=== PATIENT | female | born 1985 | race Caucasian/White ===

== ENCOUNTER 2022-10-24 03:16 | Emergency (ER) | payer OTHER ==
[2022-10-24 03:21] VITALS: BP 139/89; PULSE 100; RESP 18; TEMP 97.6; BMI 34.1
[2022-10-24] MEDS ORDERED: ACETAMINOPHEN 325 MG TABLET (FP) PO ONE (03:47)
[2022-10-24] MEDS ORDERED: ACETAMINOPHEN 325 MG TABLET (FP) ONE (03:55)
== END 2022-10-24 04:14 | disposition home or self-care (01) ==
LOC: JER 03:16
DX: O99.413 Diseases of the circulatory system complicating pregnancy, third trimester (principal); R07.9 Chest pain, unspecified; O99.613 Diseases of the digestive system complicating pregnancy, third trimester; R10.9 Unspecified abdominal pain; Z3A.30 30 weeks gestation of pregnancy
CPT/HCPCS: 93005; 93010; 99283-25

== ENCOUNTER 2022-12-27 03:04 | Inpatient (IN) | payer OTHER ==
[2022-12-27] MEDS ORDERED: DINOPROSTONE 10 MG VAGINAL SUPPOSITORY VG STA (05:30)
[2022-12-27] MEDS: ELECTROLYTE-148 SOLN 1,000 ML IV SCH ×3 (05:45→15:22)
[2022-12-27 06:19] VITALS: BMI 34.1
[2022-12-27 06:21] LABS: BASO % 0.8 % (0-2.0); EOS % 1.2 % (0-4.5); HEMOGLOBIN 13.2 GM/dL (10.7-15.3); LYMPH % 24.3 % (8-40); MCH 28.5 pg (25.7-33.7); MCHC 34.7 g/dl (32.0-36.0); MEAN CELL VOLUME 82.1 fl (80-96); MEAN PLT VOLUME 11.7 fl (7.5-11.1); MONO % 7.7 % (3.8-10.2); PLATELET COUNT 224 10^3/uL (134-434); RBC 4.63 M/mm3 (3.60-5.2); RDW 15.4 % (11.6-15.6); WHITE BLOOD COUNT 9.9 K/mm3 (4.0-10.0)
[2022-12-27 06:58] LABS: INR 0.98 (0.83-1.09); PROTHROMBIN TIME (PATIENT) 11.4 SEC (9.7-13.0)
[2022-12-27 07:18] LABS: ALBUMIN 2.8 g/dl (3.4-5.0); BLOOD UREA NITROGEN 7.6 mg/dL (7-18); CALCIUM 9.5 mg/dL (8.5-10.1)
[2022-12-27 07:21] LABS: CREATININE 0.5 mg/dL (0.55-1.3)
[2022-12-27 07:23] LABS: BILIRUBIN,TOTAL 0.7 mg/dL (0.2-1); TOT PROT 7.2 g/dl (6.4-8.2)
[2022-12-27] MEDS ORDERED: PROMETHAZINE HCL 25 MG/1 ML VIAL IVPB ONE (07:37)
[2022-12-27] MEDS ORDERED: BUTORPHANOL TARTRATE 1 MG/ML VIAL IVPB ONE (07:37)
[2022-12-27] MEDS ORDERED: BUTORPHANOL TARTRATE 2 MG/ML VIAL ONE (07:39)
[2022-12-27] MEDS ORDERED: FENTANYL/BUPIVACAINE/NS/PF - PCEA - 50 ML DISP.SYRIN EP ONE ×2 (10:21→14:37)
[2022-12-27] MEDS ORDERED: NALOXONE HCL 0.4 MG/ML VIAL IVPUSH PRN (10:33)
[2022-12-27] MEDS ORDERED: FENTANYL CITRATE/PF 50 MCG/ML VIAL ONE ×3 (10:34→15:02)
[2022-12-27] MEDS ORDERED: BUPIVACAINE HCL/PF 0.25% (2.5MG/ML) 10 ML VIAL ONE ×2 (10:34→15:02)
[2022-12-27] MEDS: FENTANYL/BUPIVACAINE/NS/PF - PCEA - 50 ML DISP.SYRIN EP SCH ×2 (10:45→14:46)
[2022-12-27] MEDS ORDERED: OXYTOCIN 20 UNITS in 0.9% NS 20 UNIT/1,000 ML INFUS.BAG IV ONE (17:32)
[2022-12-27] MEDS ORDERED: BENZOCAINE 20% 57 GM BOTTLE TP PRN (17:35)
[2022-12-27] MEDS ORDERED: BISACODYL 10 MG SUPP.RECT RC PRN (17:35)
[2022-12-27] MEDS ORDERED: WITCH HAZEL 50% (TUCKS) 40 PAD/JAR PAD TP PRN (17:35)
[2022-12-27] MEDS ORDERED: BENZOCAINE 28 GM HEMORRHOIDAL OINTMENT TP PRN (17:35)
[2022-12-27] MEDS ORDERED: ACETAMINOPHEN 325 MG TABLET (FP) PO PRN (17:35)
[2022-12-27] MEDS ORDERED: METHYLERGONOVINE MALEATE 0.2 MG/1 ML AMP IM PRN (17:35)
[2022-12-27] MEDS ORDERED: OXYTOCIN 20 UNITS in 0.9% NS 20 UNIT/1,000 ML INFUS.BAG IV SCH (17:45)
[2022-12-27] MEDS: IBUPROFEN 600 MG TABLET (FP) PO PRN (22:27)
[2022-12-28 07:34] LABS: BASO % 0.4 % (0-2.0); HEMATOCRIT 30.3 % (32.4-45.2); HEMOGLOBIN 10.7 GM/dL (10.7-15.3); LYMPH % 21.9 % (8-40); MCH 29.2 pg (25.7-33.7); MCHC 35.3 g/dl (32.0-36.0); MEAN CELL VOLUME 82.7 fl (80-96); MEAN PLT VOLUME 10.9 fl (7.5-11.1); MONO % 9.9 % (3.8-10.2); NEUT % 66.8 % (42.8-82.8); PLATELET COUNT 185 10^3/uL (134-434); RBC 3.67 M/mm3 (3.60-5.2); RDW 15.5 % (11.6-15.6); WHITE BLOOD COUNT 10.9 K/mm3 (4.0-10.0)
[2022-12-28] MEDS: PRENATAL VITAMINS W/ FOLIC ACID TABLET (FP) PO SCH (09:52)
[2022-12-28] MEDS: IBUPROFEN 600 MG TABLET (FP) PO PRN (09:52)
[2022-12-28] MEDS ORDERED: SENNOSIDES/DOCUSATE COMBO (SENNA PLUS) TABLET (UD) PO PRN (22:00)
[2022-12-29] MEDS: IBUPROFEN 600 MG TABLET (FP) PO PRN (06:21)
[2022-12-29 06:52] VITALS: RESP 18
[2022-12-29] MEDS: PRENATAL VITAMINS W/ FOLIC ACID TABLET (FP) PO SCH (09:10)
[2022-12-29 09:29] VITALS: BP 129/86; PULSE 87; TEMP 97.8
== END 2022-12-29 11:10 | disposition home or self-care (01) | DRG 560 ==
LOC: JDEL 03:04 → JLDR 05:18 → J3W 20:10
PROVIDERS: ADMIT Student in an Organized Health Care Education/Training Program; ATTEND Student in an Organized Health Care Education/Training Program
PROC: 10E0XZZ Delivery of Products of Conception, External Approach (ICD-10-PCS; principal; 2022-12-27)
DX: O69.81X0 Labor and delivery complicated by cord around neck, without compression, not applicable or unspecified (principal); Z3A.39 39 weeks gestation of pregnancy; Z37.0 Single live birth
CPT/HCPCS: 36415; 71046-TC-FY; 80053; 82570; 84156; 85025; 85610; 85730; 86780; 86850; 86900; 86901; 87635